=== PATIENT | female | born 1995 | race Caucasian/White ===

== ENCOUNTER → 2016-10-05 | Outpatient (CLI) | payer BC ==
[~2016-10-05] MED LIST: IBUP-103 PO
[2016-10-05 10:15] LABS: THYROID STIMULATING HORMONE 2.59 uIu/ml (0.300-4.500)
[2016-10-07 18:21] LABS: MICROSOMAL AB <1 IU/ML (<9)
== END | disposition home or self-care (01) ==
LOC: C.LAB1850 08:39
PROVIDERS: ATTEND Internal Medicine Endocrinology, Diabetes & Metabolism
DX: E28.8 Other ovarian dysfunction (principal); R53.83 Other fatigue; R63.4 Abnormal weight loss

== ENCOUNTER → 2016-10-06 | Outpatient (CLI) | payer BC ==
[2016-10-06 14:06] LABS: INSULIN FASTING 13.7 mU/L (3-25); INSULIN LOG 1.1367
[2016-10-06 14:34] LABS: CALCULATED INSULIN SENSITIVITY 0.326; GLUCOSE LOG 1.9294; PROLACTIN 11.64 ng/mL
[2016-10-06 14:35] LABS: CHOLESTEROL/HDL RATIO 2.1
[2016-10-11 14:14] LABS: 17 HYDROXYPROGEST 17180X 87 ng/dL; ILGF1 Z SCORE FEMALE -0.5 SD (-2.0 - +2.0); INSULIN LIKE GROWTH FACTOR-I 184 ng/mL (83-456); TESTOSTERONE,TOTAL 61 ng/dL (2-45)
== END ==
LOC: C.LAB1850 11:59
PROVIDERS: ATTEND Internal Medicine Endocrinology, Diabetes & Metabolism
DX: R63.4 Abnormal weight loss (principal); E28.2 Polycystic ovarian syndrome

== ENCOUNTER → 2016-10-18 | Outpatient (CLI) | payer BC ==
[2016-10-18 15:56] LABS: URINE APPEARANCE CLEAR (CLEAR); URINE BILIRUBIN NEG (NEG); URINE COLOR YELLOW; URINE EPITHELIAL CELL AUTO >30 /lpf (0-5); URINE NITRITE NEG (NEG); URINE SPECIFIC GRAVITY 1.022 (1.000-1.030); UROBILINOGEN NEG (NEG)
[2016-10-18 16:02] LABS: MANUAL MICROSCOPIC REQUIRED? NO; REVIEW REQ? YES
== END | disposition home or self-care (01) ==
LOC: C.LABSPEC 15:04
PROVIDERS: ATTEND Physician Assistant
DX: R39.9 Unspecified symptoms and signs involving the genitourinary system (principal)